=== PATIENT | female | born 1985 | race Caucasian/White ===

== ENCOUNTER 2020-06-24 11:55 | Outpatient (CLI) | payer BC ==
[2020-06-24 14:27] LABS: BHCG - Serum Negative (NEGATIVE); Pregs Control Background? CLEAR/WHITE (CLR/WHITE); Pregs Control Bar Appear? YES (CONTROL BAR)
[2020-06-25 03:07] LABS: SARS-CoV-2 MS2 Positive; SARS-CoV-2 N Gene Negative; SARS-CoV-2 S Gene Negative; SARS-CoV-2 by NAA Not Detected (NotDetected); SARS-CoV-2 orf1ab Negative
== END 2020-06-24 11:56 | disposition home or self-care (01) ==
LOC: LABBT 11:55
PROVIDERS: ATTEND Plastic Surgery
DX: Z01.812 Encounter for preprocedural laboratory examination (principal); Z20.828 Contact with and (suspected) exposure to other viral communicable diseases; Z90.10 Acquired absence of unspecified breast and nipple
CPT/HCPCS: 84703; 87635; U0003

== ENCOUNTER 2020-06-28 06:23 | Day surgery (SDC) | payer BC ==
[2020-06-24 15:31] VITALS: BMI 22.3
[2020-06-28] MEDS ORDERED: Fentanyl 100 MCG/2 ML VIAL ONE ×4 (06:33→09:52)
[2020-06-28] MEDS ORDERED: HYDROmorphone 0.5 MG/0.5 ML SYRINGE ONE (06:33)
[2020-06-28] MEDS ORDERED: Gentamicin 80 MG/2 ML VIAL ONE (06:35)
[2020-06-28] MEDS ORDERED: Bupivacaine 0.25% HCL 30 ML VIAL ONE (06:35)
[2020-06-28] MEDS ORDERED: EPINEPHrine 1 MG/ML AMP ONE ×2 (06:35→07:48)
[2020-06-28] MEDS ORDERED: Lidocaine 1% w/Epinephrine 1:100K 20 ML VIAL ONE (06:35)
[2020-06-28] MEDS ORDERED: Heparin 5,000 UNITS/ML VIAL ONE (06:39)
[2020-06-28] MEDS ORDERED: Midazolam HCl 2 mg/2 ml Vial ONE (07:01)
[2020-06-28] MEDS ORDERED: Scopolamine 1.5 mg/72 hour Patch ONE (07:02)
[2020-06-28] MEDS ORDERED: Sodium Chloride 0.9% 20 ML ONE (07:04)
[2020-06-28] MEDS ORDERED: Lidocaine 1% (PF) 30 ML VIAL ONE (07:09)
[2020-06-28] MEDS ORDERED: Meperidine HCl/PF 25 MG/ML VIAL ONE (09:15)
[2020-06-28] MEDS ORDERED: HYDROcodone/Acetaminophen 5/325 mg Tablet ONE (10:37)
[2020-06-28] MEDS ORDERED: PROPOFOL 200 MG/20 ML VIAL ONE (10:42)
[2020-06-28] MEDS ORDERED: Dexamethasone 20 MG/5 ML VIAL ONE (10:42)
[2020-06-28] MEDS ORDERED: Lidocaine 1% PF 5 ML VIAL ONE (10:42)
[2020-06-28] MEDS ORDERED: Ondansetron PF 4 MG/2 ML Vial ONE (10:42)
[2020-06-28] MEDS ORDERED: Ketorolac Tromethamine 30 MG/ML VIAL ONE (10:42)
--- NOTE | 2020-06-28 10:54 | OP ---
DATE OF PROCEDURE: 06/28/2020 PREOPERATIVE DIAGNOSES: 1. History of breast cancer. 2. Status post bilateral pulp tester reconstruction. PROCEDURES PERFORMED: 1. Exchange of the breast tissue pulp tester with permanent breast prosthesis including capsular work, bilateral (42193.50). 2. Fat grafting to bilateral chest (37660) (30 mL). DESCRIPTION OF PROCEDURE: Following induction of adequate anesthesia, the patient was prepped and draped in usual sterile fashion in the supine position. The existing inframammary crease scar was incised. Dissection was carried sharply down through the subcutaneous tissue to the underlying breast capsule, which was incised. The existing pulp tester was deflated and removed. The pocket was opened sufficiently to allow for a new implant. The pocket was irrigated with hypochlorite solution, which was allowed to sit adequately. The irrigation was then followed by antibiotic solution and then antibiotic and Betadine solution. A 455 mL [place] implant was placed after a skin barrier was in place. The pocket was then closed using 3-0 PDS suture for the capsule followed by 3-0 Monocryl suture for the skin. Similar procedure was done on each side. Attention was turned to the fat grafting. Tumescent fluid was infiltrated into the subcutaneous tissue of the abdomen. After this had had adequate time to take effect, liposuction was done to harvest the fat which was allowed to separate prior to decanting. The harvested fat was then injected into the bilateral medial breast through stab incisions using a micro droplet technique. Stab incisions were closed with 5-0 fast gut suture. The patient tolerated the procedure well. Job ID: [id number]
== END 2020-06-28 11:15 | disposition home or self-care (01) ==
LOC: SDC 06:23
PROVIDERS: ATTEND Plastic Surgery
PROC: 0HRV37Z Replacement of Bilateral Breast with Autologous Tissue Substitute, Percutaneous Approach (ICD-10-PCS; principal; 2020-06-28)
PROC: 0HHV0NZ Insertion of Tissue Expander into Bilateral Breast, Open Approach (ICD-10-PCS; principal; 2020-06-28)
DX: Z15.01 Genetic susceptibility to malignant neoplasm of breast (principal); Z87.891 Personal history of nicotine dependence; Z88.5 Allergy status to narcotic agent; Z91.048 Other nonmedicinal substance allergy status
CPT/HCPCS: C1713; J0171; J0690; J1100; J1170; J1580; J1644; J1885; J2001; J2175; J2250; J2405; J2704; J3010; J3370; J3490; L8600; S0020